=== PATIENT | female | born 1955 ===

== ENCOUNTER 2018-11-25 14:15 | Inpatient (IN) | payer OTHER ==
[~2018-11-25] VITALS: Ht 157.5 cm; Wt 63.5 kg
[2018-12-07] MEDS ORDERED: TRAM1TAB98 PO (18:43)
[2018-12-07] MEDS ORDERED: PANTOPRAZOLE SO40 MG PO (18:44)
[2018-12-07] MEDS ORDERED: KETO10TA2 PO (18:44)
[2018-12-07] MEDS ORDERED: Intestinex CAP PO (18:44)
== END 2018-12-07 19:23 | disposition home or self-care (01) | DRG 329 ==
LOC: EDSTATUS 14:15 → ADM 14:15 → O/R 12-03 07:39 → SURH 12-03 07:39
PROVIDERS: ADMIT Surgery
PROC: 0DT84ZZ Resection of Small Intestine, Percutaneous Endoscopic Approach (ICD-10-PCS; 2018-12-03)
PROC: 0DBU4ZZ Excision of Omentum, Percutaneous Endoscopic Approach (ICD-10-PCS; 2018-12-03)
PROC: 0DJD8ZZ Inspection of Lower Intestinal Tract, Via Natural or Artificial Opening Endoscopic (ICD-10-PCS; 2018-12-03)
PROC: 0DTN4ZZ Resection of Sigmoid Colon, Percutaneous Endoscopic Approach (ICD-10-PCS; principal; 2018-12-03 10:15)
PROC: 3E0F7GC Introduction of Other Therapeutic Substance into Respiratory Tract, Via Natural or Artificial Opening (ICD-10-PCS; 2018-12-04)
DX: K57.20 Diverticulitis of large intestine with perforation and abscess without bleeding (principal); K55.069 Acute infarction of intestine, part and extent unspecified; K63.2 Fistula of intestine; J45.20 Mild intermittent asthma, uncomplicated; I10 Essential (primary) hypertension